=== PATIENT | male | born 1950 | race Caucasian/White ===

== ENCOUNTER 2018-08-03 19:09 | Inpatient (IN) ==
[2018-08-03 20:14] LABS: Basophils % 0.2 % (0.0-0.8); Eosinophils # 0.1 10*3/uL (0.0-0.87); Hematocrit 41.8 VOL% (42.0-52.0); Hemoglobin 13.4 GM/DL (14.0-18.0); Immature Granulocytes % 1.1 %; Immature Granulocytes Absolute 0.12 #; Lymphocytes # 0.5 10*3/uL (1.4-4.0); Mean Corpuscular HGB Conc 32.1 GM/DL (32-36); Mean Corpuscular Volume 95.9 FL (87-102); Mean Platelet Volume 9.1 FL (9.6-12.0); Monocytes % 3.9 % (1.7-12.7); Neutrophils % 89.8 % (38.7-73.9); Platelet Count 311 T/CUMM (130-400); Red Blood Count 4.36 MC/CUMM (3.8-5.5); Red Cell Distribution Width 12.8 % (9.3-17.3); White Blood Count 11.4 T/CUMM (4-12)
[2018-08-03 20:44] LABS: Albumin 3.5 G/DL (3.4-5.0); Bilirubin,Total 0.7 MG/DL (0.2-1.0); Osmolality,Calculated 259.5 MOS/KG (273-304); Total Protein 7.5 G/DL (6.4-8.3)
[2018-08-03 20:44] LABS: Eosinophils 1 % (0-10); Lymphocytes 3 % (20-55); Segmented Neutrophils 96 % (50-85); Total Cells Counted 100
[2018-08-03 20:45] LABS: Anisocytosis 1+; Atypical Lymphocytes 1+; Macrocytosis 1+; Platelet Estimate Normal
[2018-08-03] MEDS ORDERED: DEXTROSE 50% 25 GM/50 ML SYRINGE IV ONE (20:51)
[2018-08-03] MEDS ORDERED: ALBUTEROL/IPRATROPIUM 3 ML NEB RESP TX STA (21:06)
[2018-08-03] MEDS ORDERED: methylPREDNISolone SOD SUC 125 MG/2 ML VIAL IV STA (21:06)
[2018-08-03] MEDS ORDERED: cefTRIAXone 1,000 MG in SODIUM CHLORIDE 0.9% 100 ML IV STA (22:06)
[2018-08-03] MEDS ORDERED: AZITHROMYCIN INJ 500 MG in SODIUM CHLORIDE 0.9% 250 ML IV STA (22:07)
[2018-08-04] MEDS ORDERED: ONDANSETRON 4 MG/2 ML VIAL IV PRN (01:17)
[2018-08-04] MEDS ORDERED: DOCUSATE SODIUM 100 MG CAPSULE PO PRN (01:17)
[2018-08-04] MEDS ORDERED: LORazepam 1 MG TABLET PO PRN (02:28)
[2018-08-04] MEDS ORDERED: MORPHINE 10 MG/5 ML UDCUP PO PRN (02:28)
[2018-08-04] MEDS: SODIUM CHLORIDE 0.9% 1,000 ML IV SCH ×2 (02:30→18:52)
[2018-08-04] MEDS: FORMOTEROL 20 MCG/2 ML NEB RESP TX SCH ×3 (03:03→19:35)
[2018-08-04 05:12] LABS: Basophils % 0.2 % (0.0-0.8); Eosinophils % 0.1 % (0.00-10.9); Hematocrit 39.1 VOL% (42.0-52.0); Hemoglobin 12.6 GM/DL (14.0-18.0); Immature Granulocytes % 0.5 %; Immature Granulocytes Absolute 0.05 #; Lymphocytes # 0.1 10*3/uL (1.4-4.0); Lymphocytes % 1.2 % (21.2-54.2); Mean Corpuscular HGB Conc 32.2 GM/DL (32-36); Mean Corpuscular Volume 95.4 FL (87-102); Mean Platelet Volume 9.2 FL (9.6-12.0); Platelet Count 295 T/CUMM (130-400); Red Cell Distribution Width 12.9 % (9.3-17.3); White Blood Count 10.7 T/CUMM (4-12)
[2018-08-04 05:38] LABS: Band Neutrophils 1 % (0-10); Platelet Estimate Normal; Polychromasia Few; Segmented Neutrophils 99 % (50-85); Total Cells Counted 100
[2018-08-04 05:46] LABS: Calcium 8.6 MG/DL (8.5-10.1); Osmolality,Calculated 268.2 MOS/KG (273-304)
[2018-08-04] MEDS: methylPREDNISolone SOD SUC 40 MG/1 ML VIAL IV SCH ×3 (06:30→21:51)
[2018-08-04] MEDS: ALBUTEROL/IPRATROPIUM 3 ML NEB RESP TX SCH ×3 (07:49→19:35)
[2018-08-04] MEDS: BUDESONIDE 0.5 MG/2 ML NEB RESP TX SCH (07:49)
[2018-08-04] MEDS ORDERED: ROFLUMILAST 500 MCG TABLET PO SCH (09:00)
[2018-08-04] MEDS: ENOXAPARIN 40 MG/0.4 ML SYRINGE SUBCUT SCH (09:15)
[2018-08-04] MEDS: cefTRIAXone 1,000 MG in SYRINGE 1 EACH IV SCH (21:52)
[2018-08-04] MEDS ORDERED: AZITHROMYCIN INJ 500 MG in SODIUM CHLORIDE 0.9% 250 ML IV SCH (22:00)
[2018-08-05] MEDS: ALBUTEROL/IPRATROPIUM 3 ML NEB RESP TX SCH ×4 (00:46→19:09)
[2018-08-05] MEDS: ACETAMINOPHEN 325 MG TABLET PO PRN (04:22)
[2018-08-05 04:35] LABS: Basophils % 0.1 % (0.0-0.8); Hemoglobin 11.7 GM/DL (14.0-18.0); Immature Granulocytes % 0.7 %; Immature Granulocytes Absolute 0.09 #; Lymphocytes # 0.2 10*3/uL (1.4-4.0); Lymphocytes % 1.5 % (21.2-54.2); Mean Corpuscular HGB Conc 33.4 GM/DL (32-36); Mean Corpuscular Volume 92.3 FL (87-102); Mean Platelet Volume 9.4 FL (9.6-12.0); Monocytes % 2.1 % (1.7-12.7); Neutrophils % 95.6 % (38.7-73.9); Platelet Count 304 T/CUMM (130-400); Red Blood Count 3.79 MC/CUMM (3.8-5.5); Red Cell Distribution Width 12.9 % (9.3-17.3); White Blood Count 13.2 T/CUMM (4-12)
[2018-08-05 04:59] LABS: Calcium 8.3 MG/DL (8.5-10.1)
[2018-08-05 05:29] LABS: Band Neutrophils 1 % (0-10); Lymphocytes 1 % (20-55); Segmented Neutrophils 97 % (50-85); Total Cells Counted 100
[2018-08-05 05:30] LABS: Hypochromasia Slight; Platelet Estimate Normal
[2018-08-05] MEDS: methylPREDNISolone SOD SUC 40 MG/1 ML VIAL IV SCH ×2 (06:10→16:03)
[2018-08-05] MEDS ORDERED: LEVOTHYROXINE 75 MCG TABLET PO SCH ×2 (06:30→08:16)
[2018-08-05] MEDS: FORMOTEROL 20 MCG/2 ML NEB RESP TX SCH ×2 (07:31→19:09)
[2018-08-05] MEDS: BUDESONIDE 0.5 MG/2 ML NEB RESP TX SCH (07:31)
[2018-08-05] MEDS: ALBUTEROL 2.5 MG/3 ML NEB RESP TX PRN (07:31)
[2018-08-05] MEDS ORDERED: POTASSIUM CHLORIDE 20 MEQ TABLET PO ONE (08:13)
[2018-08-05] MEDS ORDERED: AZITHROMYCIN 250 MG TABLET PO SCH (09:00)
[2018-08-05 09:03] LABS: Free T4 (Free Thyroxine) 0.72 NG/DL (0.76-1.46)
[2018-08-05] MEDS: SODIUM CHLORIDE 0.9% 1,000 ML IV SCH ×2 (09:09→22:04)
[2018-08-05] MEDS: ENOXAPARIN 40 MG/0.4 ML SYRINGE SUBCUT SCH (09:10)
[2018-08-05] MEDS: ROFLUMILAST 500 MCG TABLET PO SCH (09:12)
[2018-08-05] MEDS: CALCIUM CARBONATE CHEW 500 MG TABLET PO PRN (11:54)
[2018-08-05] MEDS: guaiFENesin 200 MG/10 ML UDCUP PO PRN (17:17)
[2018-08-05] MEDS: cefTRIAXone 1,000 MG in SYRINGE 1 EACH IV SCH (21:59)
[2018-08-06] MEDS: ALBUTEROL/IPRATROPIUM 3 ML NEB RESP TX SCH ×4 (00:51→18:50)
[2018-08-06 05:49] LABS: Basophils % 0.2 % (0.0-0.8); Hematocrit 34.3 VOL% (42.0-52.0); Immature Granulocytes % 0.8 %; Lymphocytes # 0.2 10*3/uL (1.4-4.0); Lymphocytes % 1.4 % (21.2-54.2); Mean Corpuscular HGB Conc 32.1 GM/DL (32-36); Mean Corpuscular Volume 94.8 FL (87-102); Monocytes % 3.4 % (1.7-12.7); Neutrophils % 94.2 % (38.7-73.9); Platelet Count 252 T/CUMM (130-400); Red Blood Count 3.62 MC/CUMM (3.8-5.5); White Blood Count 13.2 T/CUMM (4-12)
[2018-08-06] MEDS: guaiFENesin 200 MG/10 ML UDCUP PO PRN (05:49)
[2018-08-06] MEDS: LEVOTHYROXINE 75 MCG TABLET PO SCH (06:04)
[2018-08-06 06:20] LABS: Calcium 8.1 MG/DL (8.5-10.1); Osmolality,Calculated 272.8 MOS/KG (273-304)
[2018-08-06 06:34] LABS: Anisocytosis 1+; Lymphocytes 1 % (20-55); Ovalocytes 1+; Platelet Estimate Adequate; Segmented Neutrophils 95 % (50-85); Total Cells Counted 100
[2018-08-06] MEDS: FORMOTEROL 20 MCG/2 ML NEB RESP TX SCH ×2 (07:02→18:50)
[2018-08-06] MEDS: BUDESONIDE 0.5 MG/2 ML NEB RESP TX SCH (07:03)
[2018-08-06] MEDS ORDERED: POTASSIUM CHLORIDE 20 MEQ/15 ML UDCUP PO ONE ×2 (07:26→12:00)
[2018-08-06] MEDS: methylPREDNISolone SOD SUC 40 MG/1 ML VIAL IV SCH ×2 (09:13→21:14)
[2018-08-06] MEDS: ENOXAPARIN 40 MG/0.4 ML SYRINGE SUBCUT SCH (09:14)
[2018-08-06] MEDS: ROFLUMILAST 500 MCG TABLET PO SCH (09:14)
[2018-08-06] MEDS: NYSTATIN 500,000 UNIT/5 ML UDCUP SWISH/SWAL SCH ×4 (09:24→21:14)
[2018-08-06] MEDS: SODIUM CHLORIDE 0.9% 1,000 ML IV SCH (10:18)
[2018-08-06] MEDS: ACETAMINOPHEN 325 MG TABLET PO PRN (16:34)
[2018-08-06] MEDS: ALBUTEROL 2.5 MG/3 ML NEB RESP TX PRN (17:11)
[2018-08-06] MEDS: cefTRIAXone 1,000 MG in SYRINGE 1 EACH IV SCH (21:14)
[2018-08-07] MEDS: ALBUTEROL/IPRATROPIUM 3 ML NEB RESP TX SCH ×4 (01:34→19:35)
[2018-08-07] MEDS: ALBUTEROL 2.5 MG/3 ML NEB RESP TX PRN (02:51)
[2018-08-07 05:20] LABS: Basophils % 0.1 % (0.0-0.8); Hematocrit 35.3 VOL% (42.0-52.0); Hemoglobin 11.3 GM/DL (14.0-18.0); Immature Granulocytes % 1.2 %; Immature Granulocytes Absolute 0.11 #; Lymphocytes # 0.1 10*3/uL (1.4-4.0); Lymphocytes % 1.3 % (21.2-54.2); Mean Corpuscular Volume 95.4 FL (87-102); Mean Platelet Volume 9.1 FL (9.6-12.0); Monocytes % 1.6 % (1.7-12.7); Neutrophils % 95.8 % (38.7-73.9); Platelet Count 292 T/CUMM (130-400); Red Cell Distribution Width 13.1 % (9.3-17.3); White Blood Count 9.3 T/CUMM (4-12)
[2018-08-07 06:03] LABS: Calcium 8.5 MG/DL (8.5-10.1); Osmolality,Calculated 277.7 MOS/KG (273-304)
[2018-08-07] MEDS: LEVOTHYROXINE 75 MCG TABLET PO SCH (06:12)
[2018-08-07 06:22] LABS: Anisocytosis Slight; Lymphocytes 1 % (20-55); Microcytosis 1+; Segmented Neutrophils 98 % (50-85); Total Cells Counted 100
[2018-08-07 06:23] LABS: Platelet Estimate Normal
[2018-08-07] MEDS: CALCIUM CARBONATE CHEW 500 MG TABLET PO PRN (06:59)
[2018-08-07] MEDS: FORMOTEROL 20 MCG/2 ML NEB RESP TX SCH ×2 (07:27→19:35)
[2018-08-07] MEDS: BUDESONIDE 0.5 MG/2 ML NEB RESP TX SCH (07:27)
[2018-08-07] MEDS: ROFLUMILAST 500 MCG TABLET PO SCH (09:24)
[2018-08-07] MEDS: NYSTATIN 500,000 UNIT/5 ML UDCUP SWISH/SWAL SCH ×4 (09:24→21:04)
[2018-08-07] MEDS: ENOXAPARIN 40 MG/0.4 ML SYRINGE SUBCUT SCH (09:24)
[2018-08-07] MEDS: methylPREDNISolone SOD SUC 40 MG/1 ML VIAL IV SCH (21:04)
[2018-08-07] MEDS: cefTRIAXone 1,000 MG in SYRINGE 1 EACH IV SCH (21:04)
[2018-08-08] MEDS: ALBUTEROL/IPRATROPIUM 3 ML NEB RESP TX SCH ×4 (00:16→19:30)
[2018-08-08] MEDS: LEVOTHYROXINE 75 MCG TABLET PO SCH (05:37)
[2018-08-08] MEDS: BUDESONIDE 0.5 MG/2 ML NEB RESP TX SCH (07:29)
[2018-08-08] MEDS: FORMOTEROL 20 MCG/2 ML NEB RESP TX SCH ×2 (07:29→19:30)
[2018-08-08] MEDS: NYSTATIN 500,000 UNIT/5 ML UDCUP SWISH/SWAL SCH ×4 (09:08→21:15)
[2018-08-08] MEDS: ENOXAPARIN 40 MG/0.4 ML SYRINGE SUBCUT SCH (09:08)
[2018-08-08] MEDS: ROFLUMILAST 500 MCG TABLET PO SCH (09:08)
[2018-08-08] MEDS: cefTRIAXone 1,000 MG in SYRINGE 1 EACH IV SCH (21:12)
[2018-08-08] MEDS: methylPREDNISolone SOD SUC 40 MG/1 ML VIAL IV SCH (21:12)
[2018-08-09] MEDS: ALBUTEROL/IPRATROPIUM 3 ML NEB RESP TX SCH ×4 (00:55→19:06)
[2018-08-09 04:16] LABS: Basophils % 0.1 % (0.0-0.8); Eosinophils % 0.1 % (0.00-10.9); Hematocrit 37.8 VOL% (42.0-52.0); Hemoglobin 12.1 GM/DL (14.0-18.0); Immature Granulocytes % 0.6 %; Immature Granulocytes Absolute 0.06 #; Lymphocytes # 0.2 10*3/uL (1.4-4.0); Lymphocytes % 2.1 % (21.2-54.2); Mean Corpuscular Volume 95.2 FL (87-102); Mean Platelet Volume 9.3 FL (9.6-12.0); Monocytes % 1.2 % (1.7-12.7); Neutrophils % 95.9 % (38.7-73.9); Platelet Count 312 T/CUMM (130-400); Red Blood Count 3.97 MC/CUMM (3.8-5.5); White Blood Count 10.3 T/CUMM (4-12)
[2018-08-09 04:37] LABS: Calcium 8.3 MG/DL (8.5-10.1); Osmolality,Calculated 269.4 MOS/KG (273-304)
[2018-08-09 05:17] LABS: Hypochromasia Slight; Lymphocytes 1 % (20-55); Platelet Estimate Adequate; Segmented Neutrophils 98 % (50-85); Total Cells Counted 100
[2018-08-09] MEDS: LEVOTHYROXINE 75 MCG TABLET PO SCH (06:18)
[2018-08-09] MEDS: BUDESONIDE 0.5 MG/2 ML NEB RESP TX SCH (06:48)
[2018-08-09] MEDS: FORMOTEROL 20 MCG/2 ML NEB RESP TX SCH ×2 (06:48→19:06)
[2018-08-09] MEDS: ENOXAPARIN 40 MG/0.4 ML SYRINGE SUBCUT SCH (09:36)
[2018-08-09] MEDS: ROFLUMILAST 500 MCG TABLET PO SCH (09:37)
[2018-08-09] MEDS: NYSTATIN 500,000 UNIT/5 ML UDCUP SWISH/SWAL SCH ×4 (11:31→22:19)
[2018-08-09] MEDS: cefTRIAXone 1,000 MG in SYRINGE 1 EACH IV SCH (21:42)
[2018-08-09] MEDS: methylPREDNISolone SOD SUC 40 MG/1 ML VIAL IV SCH (21:42)
[2018-08-10] MEDS: ALBUTEROL/IPRATROPIUM 3 ML NEB RESP TX SCH ×3 (01:37→12:09)
[2018-08-10] MEDS: LEVOTHYROXINE 75 MCG TABLET PO SCH (06:13)
[2018-08-10] MEDS: BUDESONIDE 0.5 MG/2 ML NEB RESP TX SCH (06:48)
[2018-08-10] MEDS: FORMOTEROL 20 MCG/2 ML NEB RESP TX SCH (06:48)
[2018-08-10] MEDS: ROFLUMILAST 500 MCG TABLET PO SCH (08:57)
[2018-08-10] MEDS: ENOXAPARIN 40 MG/0.4 ML SYRINGE SUBCUT SCH (08:57)
[2018-08-10] MEDS: NYSTATIN 500,000 UNIT/5 ML UDCUP SWISH/SWAL SCH ×3 (08:57→17:06)
[2018-08-10 15:48] LABS: ABG Base Excess 5.6 MMOL/L (-2.5-2.5); ABG HCO3 29.4 MMOL/L (20-26); ABG Oxygen Saturation 94.2 % (95-100); ABG PCO2 35.6 MM HG (35-48); ABG PH 7.512 (7.35-7.45); ABG PO2 68.1 MM HG (80-95); ABG TCO2 24.8 MMOL/L (23-27)
[2018-08-10 17:12] VITALS: BP 131/69
[2018-08-10 17:45] LABS: CDT Specimen Source STOOL
[2018-08-11 10:10] LABS: CDT Result Positive (Negative)
== END 2018-08-10 17:40 | disposition hospice, home (50) | DRG 190 ==
LOC: EDBD → EDUNIT# → N.ED 19:09 → SUATTDRO 08-04 00:51 → N.EDINP 08-04 00:51 → N.2E 08-04 01:13
PROVIDERS: ADMIT Internal Medicine; ATTEND Internal Medicine